=== PATIENT | male | born 1995 | race Caucasian/White ===

== ENCOUNTER 2017-02-23 09:18 | Outpatient (CLI) | payer MEDICAID | END 2017-02-23 09:19 | disposition home or self-care (01) | LOC: LAB.N 09:18 | PROVIDERS: ATTEND Physician Assistant | DX: Z77.011 Contact with and (suspected) exposure to lead (principal) | CPT/HCPCS: 36415; 81599 ==

== ENCOUNTER 2017-05-08 07:24 | Emergency (ER) | payer MEDICAID ==
[2017-05-08] MEDS ORDERED: SODIUM CHLORIDE 0.9% 1,000 ML IV ONE (07:47)
[2017-05-08] MEDS ORDERED: KETOROLAC 60 MG/2 ML VIAL IVP STA (07:47)
[2017-05-08 07:58] LABS: BILIRUBIN,URINE NEGATIVE (NEGATIVE); UA CHARGE (STRIP ONLY) YES; UR CULTURE IF IND NOT INDICATED
[2017-05-08] MEDS ORDERED: SODIUM CHLORIDE FLUSH 0.9% 10 ML SYRINGE IVP ONE (07:58)
[2017-05-08] MEDS ORDERED: KETOROLAC 60 MG/2 ML VIAL ONE (07:58)
[2017-05-08 08:10] LABS: BASOPHILS % (AUTO) 0.5 %; EOSINOPHILS % (AUTO) 0.7 %; HCT - HEMATOCRIT 43.8 % (42.0-52.0); LYMPHOCYTES # (AUTO) 2.1 10^3/uL (1.5-3.5); LYMPHOCYTES % (AUTO) 35.2 %; MEAN CORPUSCULAR HEMOGLOBIN 30.4 pg (27.0-31.0); MEAN CORPUSCULAR HGB CONC 34.2 g/dL (32.0-36.0); MEAN CORPUSCULAR VOLUME 88.8 fL (80.0-94.0); MEAN PLATELET VOLUME 8.5 fL (7.4-11.4); MONOCYTES # (AUTO) 0.4 10^3/uL (0.0-1.0); MONOCYTES % (AUTO) 6.8 %; NEUTROPHILS # (AUTO) 3.4 10^3/uL (1.5-6.6); NEUTROPHILS % (AUTO) 56.8 %; RED BLOOD COUNT 4.93 10^6/uL (4.70-6.10); RED CELL DISTRIBUTION WIDTH 12.8 % (12.0-15.0); UNCORRECTED WHITE BLOOD COUNT 5.9 x10^3/uL; WHITE BLOOD COUNT 5.9 x10^3/uL (4.8-10.8)
--- NOTE | 2017-05-08 08:11 | ED Physician Documentation ---
History of Present Illness - Stated complaint Stated Complaint: SIDE/BACK PX - Chief complaint Chief Complaint: Abd Pain - Additonal information Additional information: hx from pt 22 y/o male sudden onset right flank pain 630 AM when urinating associated NV no abd pain no pain no hematuria no fever no hx same still present but subsided some Review of Systems Constitutional: denies: Fever, Chills Cardiac: denies: Chest pain / pressure Respiratory: denies: Dyspnea GI: reports: Nausea, Vomiting. denies: Abdominal Pain : denies: Hematuria, Testicular pain Musculoskeletal: reports: Back pain Endocrine: denies: Easy bruising / bleeding Immunocompromised: denies: Immunocompromised PD PAST MEDICAL HISTORY - Past Surgical History Past Surgical History: No HEENT: Myringotomy (tubes), Tonsil/Adenoidectomy - Present Medications Home Medications: Ambulatory Orders Medication Instructions Recorded Confirmed No Known Home Medications [No 12/27/12 12/27/12 Known Home Medications] - Allergies Allergies/Adverse Reactions: Allergies Allergy/AdvReac Type Severity Reaction Status Date / Time No Known Drug Allergies Allergy Verified 12/27/12 18:24 - Social History Does the pt smoke?: No Smoking Status: Never smoker Does the pt drink ETOH?: No - Immunizations Immunizations are current?: Yes PD ED PE NORMAL - Vitals Vital signs reviewed: Yes - General General: Alert and oriented X 3 - Neck Neck: Supple, no meningeal sign - Cardiac Cardiac: RRR - Respiratory Respiratory: No respiratory distress, Clear bilaterally - Abdomen Abdomen: Soft, Non tender, Other (no ruq or rlq ttp) - Male Male : Deferred (no pain) - Back Back: No: No CVA TTP (mild r cva TTP) - Neuro Neuro: Alert and oriented X 3 Results - Vitals Vitals: Vital Signs - 24 hr 05/08/17 05/08/17 07:34 09:07 Temperature 35 C L 36.5 C Heart Rate 74 69 Respiratory 12 16 Rate Blood Pressure 123/63 136/69 H O2 Saturation 100 100 Oxygen O2 Source Room air - Labs Labs: Laboratory Tests 05/08/17 05/08/17 05/08/17 07:51 07:59 07:59 WBC 5.9 RBC 4.93 Hgb 15.0 Hct 43.8 MCV 88.8 MCH 30.4 MCHC 34.2 RDW 12.8 Plt Count 215 MPV 8.5 Neut # 3.4 Lymph # 2.1 Maury # 0.4 Eos # 0.0 Baso # 0.0 Absolute Nucleated RBC 0.00 Nucleated RBC % 0.0 Sodium 143 Potassium 3.7 Chloride 109 Carbon Dioxide 23 Anion Gap 11.0 BUN 21 H Creatinine 1.1 Estimated GFR (MDRD) 85 L Glucose 111 H Calcium 9.8 Total Bilirubin 1.0 AST 21 ALT 19 Alkaline Phosphatase 54 Total Protein 7.5 Albumin 4.4 Globulin 3.1 Albumin/Globulin Ratio 1.4 Lipase 31 Urine Color YELLOW Urine Clarity CLEAR Urine pH 6.0 Ur Specific Bradford 1.015 Urine Protein NEGATIVE Urine Glucose (UA) NEGATIVE Urine Ketones NEGATIVE Urine Occult Blood TRACE-LYSE Urine Nitrite NEGATIVE Urine Bilirubin NEGATIVE Urine Urobilinogen 0.2 (NORMAL) Ur Leukocyte Esterase NEGATIVE Ur Microscopic Review NOT INDICATED Urine Culture Comments NOT INDICATED - Rads (name of study) CT abd pelvis Radiology: See rad report (no kidney stone, likely benigh cyst R kidney 3.4 cm, no other acute process (no appy, no gallstones etc)) Departure - Departure Disposition: 01 Home, Self Care Clinical Impression: Cyst of right kidney Condition: Good Instructions: Simple Renal Cysts, ED Flank Pain Uncertain Cause Follow-Up: [facility] [Provider Group] Comments: The blood work and urine test are fine The CT scan shows no kidney stones - and no appendicitis, gallstone, aneurysm, bowel problems either The CT does show a cyst in the right kidney and the radiologist suggest you see your PMD to get an ultrasound of the kidney Please get your blood pressure rechecked at that time as well - it was a little bit high
[2017-05-08 08:23] LABS: ALBUMIN/GLOBULIN RATIO 1.4 (1.0-2.2); CALCIUM 9.8 mg/dL (8.5-10.3); CREATININE 1.1 mg/dL (0.6-1.2); POTASSIUM 3.7 mmol/L (3.5-5.0); TOTAL PROTEIN 7.5 g/dL (6.7-8.2)
[2017-05-08 09:08] VITALS: BP 136/69
--- NOTE | 2017-05-08 09:08 | CT Report ---
EXAM: CT ABDOMEN AND PELVIS (CT KUB) WITHOUT CONTRAST EXAM DATE: 05/08/2017 08:37 AM. CLINICAL HISTORY: Right flank pain since 6 AM in a 22-year-old male. COMPARISONS: None. TECHNIQUE: Emergent axial helical CT imaging was performed through the abdomen and pelvis without IV contrast. Reconstructions: Coronal and sagittal. In accordance with CT protocol optimization, one or more of the following dose reduction techniques w ere utilized for this exam: automated exposure control, adjustment of mA and/or KV based on patient s ize, or use of iterative reconstructive technique. FINDINGS: Lung Bases: Unremarkable. Right Kidney/Ureter: Normal size and contour. Ovoid low-attenuation nodule lateral aspect mid right k idney is 3.4 cm in maximum diameter, most suggestive of a benign renal cyst. No stones, hydronephrosi s, or hydroureter. No perinephric fat stranding. Left Kidney/Ureter: Normal size and contour. No gross evidence for mass or cyst on noncontrast imagin g. No stones, hydronephrosis, or hydroureter. No perinephric fat stranding. Other Solid Organs: Upper normal spleen size at 13.2 cm. Noncontrast images of the solid organs are o therwise grossly unremarkable. Gallbladder/Bile Ducts: No gallstones, wall thickening or dilated bile ducts. Peritoneal Cavity: Moderate colonic stool content, not excessive. No obstruction, diverticular diseas e or inflammatory bowel disease. No free fluid, free air or santy adenopathy. Appendix and terminal i leum unremarkable. Pelvic Organs: No bladder stones or wall thickening. Noncontrast images of the visualized pelvic orga ns are unremarkable. Vasculature: Unremarkable. Other: None. IMPRESSION: No urinary tract calculi, hydronephrosis or other demonstrated cause for right flank pain. Likely benign simple cyst right kidney 3.4 cm in maximum diameter. Follow-up with renal ultrasound on elective basis recommended to confirm. Remainder of the abdomen and pelvis unremarkable. [facility] Referring Provider Line: [phone] SITE ID: [id number]
== END 2017-05-08 09:28 | disposition home or self-care (01) ==
LOC: ED 07:24
DX: N28.1 Cyst of kidney, acquired (principal)
CPT/HCPCS: 36415; 74176; 80053; 81001; 81003; 83690; 85025; 87086; 96361; 96374; 99284

== ENCOUNTER 2017-05-20 17:35 | Outpatient (CLI) | payer MEDICAID ==
--- NOTE | 2017-05-21 13:47 | Ultrasound Preliminary Report ---
Exam: US RETROPERITONEAL IMPRESSION: Unremarkable renal ultrasound with note made of a simple cyst at the upper pole of the ri ght kidney measuring 3.6 cm which corresponds to the CT abnormality. [facility] SITE ID: [id number]
--- NOTE | 2017-05-21 13:50 | Ultrasound Report ---
EXAM: RENAL ULTRASOUND EXAM DATE: 05/20/2017 06:29 PM. CLINICAL HISTORY: Characterize right renal lesion seen on CT scan. COMPARISON: Abdomen and pelvis CT 05/08/2017. TECHNIQUE: Real-time scanning was performed with static images obtained. FINDINGS: Right Kidney: 11.3 x 5.2 x 7.6 cm. No hydronephrosis with a simple cyst at the upper pole measuring 3 .6 x 3.0 x 3.4 cm. Left Kidney: 11.6 x 4.8 x 5.7 cm. No hydronephrosis. 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 Bladder: Bilateral jets seen. The prevoid bladder volume was 234 cc. The postvoid bladder volume was 0 cc. IMPRESSION: Unremarkable renal ultrasound with note made of a simple cyst at the upper pole of the ri ght kidney measuring 3.6 cm which corresponds to the CT abnormality. [facility] Referring Provider Line: [phone] SITE ID: [id number]
== END 2017-05-20 17:36 | disposition home or self-care (01) ==
LOC: DI 17:35
PROVIDERS: ATTEND Nurse Practitioner Gerontology
DX: N28.1 Cyst of kidney, acquired (principal)
CPT/HCPCS: 76770